=== PATIENT | female | born 1980 | race Caucasian/White ===

== ENCOUNTER 2017-03-14 08:00 | Outpatient (CLI) | payer OTHER ==
[2017-03-14 18:54] LABS: BASOPHILS # (AUTO) 0.1 10^3/uL (0.0-0.1); BASOPHILS % (AUTO) 0.7 %; EOSINOPHILS # (AUTO) 0.1 10^3/uL (0.0-0.7); EOSINOPHILS % (AUTO) 0.6 %; HCT - HEMATOCRIT 41.4 % (37.0-47.0); HGB - HEMOGLOBIN 13.9 g/dL (12.0-16.0); LYMPHOCYTES % (AUTO) 22.7 %; MEAN CORPUSCULAR HEMOGLOBIN 32.6 pg (27.0-31.0); MEAN CORPUSCULAR HGB CONC 33.6 g/dL (32.0-36.0); MEAN CORPUSCULAR VOLUME 96.9 fL (81.0-99.0); MEAN PLATELET VOLUME 8.9 fL (7.9-10.8); MONOCYTES # (AUTO) 0.7 10^3/uL (0.0-1.0); MONOCYTES % (AUTO) 7.5 %; NEUTROPHILS % (AUTO) 68.5 %; RED BLOOD COUNT 4.27 10^6/uL (4.20-5.40); RED CELL DISTRIBUTION WIDTH 13.2 % (12.0-15.0); UNCORRECTED WHITE BLOOD COUNT 8.8 x10^3/uL; WHITE BLOOD COUNT 8.8 x10^3/uL (4.8-10.8)
[2017-03-14 19:15] LABS: ALBUMIN/GLOBULIN RATIO 1.4 (1.0-2.2); BILIRUBIN,TOTAL 0.5 mg/dL (0.2-1.0); BUN - BLOOD UREA NITROGEN 14 mg/dL (6-20); CALCIUM 9.3 mg/dL (8.5-10.3); CARBON DIOXIDE - CO2 24 mmol/L (21-32); CHLORIDE 106 mmol/L (101-111); CHOLESTEROL 134 mg/dL; CREATININE 0.7 mg/dL (0.4-1.0); GFR - MDRD 95 (>89); GLUCOSE 91 mg/dL (70-100); HDL CHOLESTEROL 45 mg/dL; IRON 77 ug/dL (28-170); LDL/HDL RATIO 1.8 (<4.4); POTASSIUM 4.5 mmol/L (3.5-5.0); SODIUM 137 mmol/L (135-145); TOTAL IRON BINDING CAPACITY 337 ug/dL (250-450); TOTAL PROTEIN 7.4 g/dL (6.7-8.2); TRANSFERRIN 241 mg/dL (192-382); TRIGLYCERIDES 43 mg/dL; VLDL CHOLESTEROL 9 mg/dL
[2017-03-14 19:22] LABS: THYROID STIMULATING HORMONE 0.8 uIU/mL (0.34-5.60)
== END 2017-03-14 08:01 | disposition home or self-care (01) ==
LOC: LAB.WCP 08:00
PROVIDERS: ATTEND Physician Assistant Medical
DX: Z00.00 Encounter for general adult medical examination without abnormal findings (principal); R53.83 Other fatigue
CPT/HCPCS: 36415; 80053; 80061; 82728; 83540; 84443; 84466; 85025

== ENCOUNTER 2017-04-04 08:46 | Outpatient (CLI) | payer OTHER ==
--- NOTE | 2017-04-04 10:18 | Ultrasound Report ---
LEFT BREAST ULTRASOUND: 04/04/2017 CLINICAL INDICATION: Palpable abnormality, intermittent pain. TECHNIQUE: Real-time scanning was performed with novelties sales representative static images obtained. FINDINGS: Ultrasound of the region of palpable abnormality identified by the patient was performed. Unremarkable parenchymal lobules are present. No discrete solid or cystic mass is identified. No s onographically suspicious findings are seen. IMPRESSION: NEGATIVE EXAMINATION. RECOMMENDATION: Continued clinical evaluation. Routine annual screening, to commence at age 40, unl ess otherwise clinically indicated. BIRADS CATEGORY 1 - NEGATIVE. 10:9:51 JOB #: [id number] EXT JOB #:[id number]
--- NOTE | 2017-04-04 14:09 | Mammography Report ---
DIGITAL DIAGNOSTIC BILATERAL MAMMOGRAM: 04/04/2017 CLINICAL INDICATION: Palpable abnormality left breast, occasional pain. TECHNIQUE: Bilateral CC and MLO views, left true lateral view. A marker was placed at the site of pal pable abnormality identified by the patient. This is the patient's baseline mammogram. FINDINGS: The breasts demonstrate scattered fibroglandular densities bilaterally. No suspicious mass es, clustered microcalcifications, or regions of architectural distortion are identified. Specificall y, no mammographic abnormality is appreciated in the left outer central breast, at the site indicated by the marker. Please also refer to left breast ultrasound of the same day. IMPRESSION: NEGATIVE EXAMINATION. RECOMMENDATION: ROUTINE ANNUAL SCREENING, TO COMMENCE AT AGE 40, UNLESS OTHERWISE CLINICALLY INDICATE D. BIRADS CATEGORY 1-NEGATIVE. STANDARD QUALIFYING STATEMENTS 1. This examination was reviewed with the aid of Computer-Aided Detection (CAD). 2. A negative or benign imaging report should not delay biopsy if clinically suspicious findings are present. Consider surgical consultation if warranted. More than 5% of cancers are not identified by i maging. 3. Dense breasts may obscure an underlying neoplasm. JOB #: [id number] EXT JOB #:[id number]
== END 2017-04-04 08:47 | disposition home or self-care (01) ==
LOC: DI 08:46
PROVIDERS: ATTEND Physician Assistant Medical
DX: N63.20 Unspecified lump in the left breast, unspecified quadrant (principal)
CPT/HCPCS: 76642; 77066

== ENCOUNTER 2017-09-22 08:00 | Outpatient (CLI) | payer SELFPAY | END 2017-09-22 08:01 | disposition EMS.NT | LOC: EMS 08:00 | PROVIDERS: ATTEND Surgery | DX: M54.2 Cervicalgia (principal); V43.52XA Car driver injured in collision with other type car in traffic accident, initial encounter; Y92.410 Unspecified street and highway as the place of occurrence of the external cause ==

== ENCOUNTER 2017-09-22 09:47 | Emergency (ER) | payer OTHER, BC ==
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
[2017-09-22] MEDS ORDERED: DEXAMETHASONE 10 MG/ML VIAL PO STA (12:12)
[2017-09-22 12:30] VITALS: BP 118/75
== END 2017-09-22 12:25 | disposition home or self-care (01) ==
LOC: ED 09:47
DX: F17.200 Nicotine dependence, unspecified, uncomplicated (principal); S16.1XXA Strain of muscle, fascia and tendon at neck level, initial encounter; V43.52XA Car driver injured in collision with other type car in traffic accident, initial encounter; Y92.411 Interstate highway as the place of occurrence of the external cause
CPT/HCPCS: 72125; 99283

== ENCOUNTER 2018-04-16 10:31 | Outpatient (CLI) | payer BC ==
--- NOTE | 2018-04-16 14:21 | Ultrasound Report ---
Reason: IUD CHECK Procedure Date: 04/16/2018 Accession Number: [id number] / [id number] Procedure: US - Pelvic w/Transvaginal CPT Code: FULL RESULT: EXAM: PELVIC ULTRASOUND EXAM DATE: 04/16/2018 11:05 AM. CLINICAL HISTORY: IUD check. COMPARISON: None. TECHNIQUE: Realtime transabdominal pelvic scan performed to identify the uterus and adnexa and as an overview of other pelvic structures, followed by transvaginal scan to provide greater detail of the uterus and adnexa, with static image documentation. FINDINGS: Uterus: 7.4 x 3.2 x 4.6 cm, volume 57 cc. Anteverted position. Normal overall size and echotexture. Masses: None. Endometrium: 5 mm. An appropriately positioned intrauterine device is noted. Cervix: Unremarkable. Right Ovary: 2.4 x 2.1 x 1.8 cm, volume 4.7 cc. Normal echotexture and blood flow. Left Ovary: 1.6 x 1.1 x 2.2 cm, volume 2.0 cc. Normal echotexture and blood flow. Free Fluid: None. Other: None. IMPRESSION: Properly positioned intrauterine device. [facility]
== END 2018-04-16 10:32 | disposition home or self-care (01) ==
LOC: DI 10:31
PROVIDERS: ATTEND Family Medicine
DX: Z30.431 Encounter for routine checking of intrauterine contraceptive device (principal)
CPT/HCPCS: 76830; 76856

== ENCOUNTER 2019-06-05 10:00 | Outpatient (CLI) | payer BC, OTHER ==
[2019-06-06 12:33] LABS: HEPATITIS C ANTIBODY NON-REACTIVE (NON-REACTIVE)
[2019-06-06 15:09] LABS: HIV AG/AB 4TH GEN NON-REACTIVE (NON-REACTIVE)
== END 2019-06-05 23:59 | disposition home or self-care (01) ==
LOC: LAB.WCP 10:00
PROVIDERS: ATTEND Family Medicine
DX: Z11.3 Encounter for screening for infections with a predominantly sexual mode of transmission (principal)
CPT/HCPCS: 36415; 81599; 86592; 86803; 87389